=== PATIENT | male | born 1970 | race African-American/Black ===

== ENCOUNTER 2021-01-01 17:57 | Inpatient (IN) | payer BC, SELFPAY ==
--- NOTE | ~2021-01-01 | CT_ITS ---
EXAMINATION: CT abdomen pelvis w con DATE: 01/01/2021 18:59 INDICATION: Low abdominal pain. TECHNIQUE: Computed tomography (CT) of the abdomen and pelvis was performed with 100 mL Omnipaque 350 intravenous contrast. Automated exposure control and iterative reconstruction technique were employe d. The dose-length product was 396.65 mGy-cm. COMPARISON: None. FINDINGS: The visualized portions of the lung bases demonstrate mild atelectasis. No pleural effusion . The heart size is normal. No pericardial effusion. The liver, gallbladder, spleen, pancreas, adrena l glands, and kidneys are normal. There are scattered diverticula in the colon. There is fat strandin g around a diverticulum of ascending colon with local colon wall thickening and punctate foci of free intraperitoneal gas. There is trace fluid in right paracolic gutter. The appendix is normal. There a re no pathologically enlarged lymph nodes. There is mild thoracolumbar spondylosis. IMPRESSION: 1. Diverticulitis of ascending colon with microperforation. No abscess. Reviewed, dictated and finalized at location A.
[2021-01-01 18:00] VITALS: BP 123/76; PULSE 111; RESP 20; TEMP 36.9; O2SAT 100
[2021-01-01 18:26] LABS: Basophils Absolute Auto 0.1 K/mm3 (0.0-0.1); Basophils Percent Auto 0.4 % (0.2-1.2); Eosinophils Absolute Auto 0.1 K/mm3 (0-0.3); Hematocrit 43.9 % (42.0-52.0); Hemoglobin 14.6 g/dL (14.0-18.0); Immature Granulocyte Absolute 0.05 K/mm3 (0.00-0.031); Immature Granulocyte Percent A 0.4 % (0-0.5); Lymphocytes Absolute Auto 2.09 K/mm3 (0.9-3.2); Lymphocytes Percent Auto 14.8 % (18.3-44.2); Mean Corpuscular HGB Conc 33.3 g/dl (32-36); Mean Corpuscular Hemoglobin 29.7 pg (26-34); Mean Corpuscular Volume 89.4 fl (80-100); Mean Platelet Volume 10.5 fl (7.4-10.4); Monocytes Absolute Auto 1.2 K/mm3 (0.1-0.6); Monocytes Percent Auto 8.6 % (2.6-8.5); Neutrophils Absolute Auto 10.6 K/mm3 (1.3-6.7); Neutrophils Percent Auto 74.8 % (45.5-73.1); Platelet Count Result 246 k/mm3 (150-375); Red Blood Count 4.91 M/mm3 (4.6-6.20); Red Cell Distribution Width 13.1 % (11.5-14.5); White Blood Count 14.1 K/mm3 (4.5-10.0)
[2021-01-01 18:29] LABS: Add Urine Microscopic? YES; Appearance Urine Clear (Clear); Bilirubin Urine Negative (Negative); Blood Urine Negative (Negative); Color Urine Yellow (Yellow); Glucose Urine UA Negative (Negative); Ketones Urine Negative (Negative); Leukocyte Esterase Ur Negative LEU/UL (Negative); Mucus Urine Rare /lpf; Nitrate Urine Negative (Negative); Protein Urine 1+ mg/dL (Negative); RBC Urine 0-2 /hpf (0-2); Specific Grav Ur 1.025 (1.001-1.035); WBC Urine 0-3 /hpf
[2021-01-01 18:36] LABS: Alanine Aminotransferase 28 U/L (4-50); Albumin Level 4.7 g/dL (3.5-5.1); Alkaline Phosphatase 70 U/L (38-126); Anion Gap 7 mmol/L (8-16); Aspartate Amino Transferase 34 U/L (17-59); Bilirubin,Total 1.1 mg/dL (0.2-1.3); Blood Urea Nitrogen 17 mg/dL (9-20); Calcium 9.7 mg/dL (8.4-10.2); Carbon Dioxide 33 mmol/L (22-30); Chloride 101 mmol/L (98-107); Estimated CRCL calculation 70 ml/min; Estimated Glomerular Filt Rate > 60; Glucose 143 mg/dL (75-110); Lipase 66 U/L (23-300); Potassium 3.5 mmol/L (3.4-5.0); Sodium 141 mmol/L (137-145)
[2021-01-01] MEDS: SODIUM CHLORIDE 0.9% IV 1,000 ML 999 ML IV CONT ×2 (19:13→19:32)
--- NOTE | 2021-01-01 19:18 | ED.ABDPAIN ---
HPI - Abdominal Pain General Chief Complaint: Abdominal Pain Stated Complaint: abd pain Time Seen by Provider: 01/01/21 18:21 Source: patient, family and RN notes reviewed Mode of arrival: ambulatory Limitations: no limitations History of Present Illness HPI narrative: Patient is 50 years old -[place] male presents with intermittent lower abdominal pain bilaterally started yesterday morning, worse if you try to raise up, better if you lay down flat. Patient denies any fever, chills, nausea, vomiting, chest pain, back pain. Patient denies any history of abdominal surgery. Patient does not smoke, drinks daily, does not use drugs. Related Data Home Medications Medication Instructions Recorded Confirmed simvastatin 20 mg PO DAILY 01/01/21 01/01/21 Allergies Allergy/AdvReac Type Severity Reaction Status Date / Time No Known Allergies Allergy Verified 01/01/21 18:02 Review of Systems Review of Systems: Narrative: CONSTITUTIONAL: Denies fever, chills, or sweats. EYES: Denies visual changes, redness, or discharge. ENT: Denies rhinorrhea, congestion, sore throat, or otalgia. CARDIOVASCULAR: Denies chest pain, palpitations, or edema. RESPIRATORY: Denies cough or dyspnea. GASTROINTESTINAL: Denies abdominal pain, nausea, vomiting, or diarrhea. GENITOURINARY: Denies dysuria or hematuria. SKIN: Denies rash or itching. MUSCULOSKELETAL: Denies back pain, joint pain, or myalgia. NEUROLOGIC: Denies headache, numbness, or weakness. PSYCHIATRIC: Denies anxiety or depression. PMFSH Social History Social History Gender identity (if verbalized by the patient): Male Exam Narrative: Exam Narrative: General appearance: Well-developed, well-nourished Skin: Normal color Head: Normocephalic, nontraumatic Eyes: Clear conjunctiva ENT: Oropharynx normal, ears normal, nose normal Neck: Supple, nontender Chest and respiratory: Airway patent, no respiratory distress, no accessory muscle use Heart: Regular rate/rhythm Abdomen: Soft, diffuse tenderness mainly lower abdomen bilaterally, distention,, no organomegaly, quiet bowel sounds Vascular: Normal peripheral pulses, normal capillary refill. Musculoskeletal: Normal range of motion, nontender back Neurologic: Alert and oriented ?3, [employer] is normal as tested, no gross motor deficit Course Course Emergency Course: Stable Vital Signs Vital signs: Vital Signs Temperature 36.9 C 01/01/21 18:00 Pulse Rate 111 H 01/01/21 18:00 Respiratory Rate 20 01/01/21 18:00 Blood Pressure 123/76 01/01/21 18:00 Pulse Oximetry 100 01/01/21 18:00 Temperature 36.9 C 01/01/21 18:00 Pulse Rate 111 H 01/01/21 18:00 Respiratory Rate 20 01/01/21 18:00 Blood Pressure 123/76 01/01/21 18:00 Pulse Oximetry 100 01/01/21 18:00 MDM - Abdominal Pain MDM Narrative Medical decision making narrative: Patient presents with abdominal pain. Please look at the differential diagnosis below Labs, CT abdomen and pelvis with IV contrast, IV fluid, further plan to follow. The patient declined to take any pain medication at this time. Differential Diagnosis Differential diagnosis: Likely acute appendicitis, constipation, diverticulitis and pancreatitis Lab Data Result diagrams: 01/01/21 18:13 01/01/21 18:13 Labs: Lab Results 01/01/21 01/01/21 01/01/21 Range/Units 18:13 18:13 18:13 WBC 14.1 H (4.5-10.0) K/mm3 RBC 4.91 (4.6-6.20) M/mm3 Hgb 14.6 (14.0-18.0) g/dL Hct 43.9 (42.0-52.0) % MCV 89.4 (80-100) fl MCH 29.7 (26-34) pg MCHC 33.3 (32-36) g/dl RDW 13.1 (11.5-14.5) % Plt Count
[2021-01-01] MEDS: SODIUM CHLORIDE 0.9% IV 1,000 ML 150 ML IV CONT (21:11)
[2021-01-01] MEDS: HYDROmorphone HCL INJ (*CRX) 1 MG/ML SYR 0.5 MG IV PUSH (21:12)
[2021-01-01 21:23] VITALS: BP 115/79; PULSE 95; RESP 18; TEMP 36.9; O2SAT 100
[2021-01-01 22:45] VITALS: BMI 26.8
[2021-01-02] MEDS: HYDROmorphone HCL INJ (*CRX) 1 MG/ML SYR 0.5 MG IV PUSH (02:29)
[2021-01-02 04:00] VITALS: BP 113/64; PULSE 78; RESP 16; TEMP 36.6; O2SAT 98
[2021-01-02] MEDS: SODIUM CHLORIDE 0.9% IV 1,000 ML 150 ML IV CONT (05:37)
[2021-01-02 05:49] LABS: Basophils Percent Auto 0.3 % (0.2-1.2); Eosinophils Absolute Auto 0.2 K/mm3 (0-0.3); Eosinophils Percent Auto 1.3 % (0-4.4); Hematocrit 38.1 % (42.0-52.0); Hemoglobin 12.3 g/dL (14.0-18.0); Immature Granulocyte Absolute 0.06 K/mm3 (0.00-0.031); Immature Granulocyte Percent A 0.5 % (0-0.5); Lymphocytes Absolute Auto 2.02 K/mm3 (0.9-3.2); Lymphocytes Percent Auto 16.2 % (18.3-44.2); Mean Corpuscular HGB Conc 32.3 g/dl (32-36); Mean Corpuscular Hemoglobin 29.1 pg (26-34); Mean Corpuscular Volume 90.3 fl (80-100); Mean Platelet Volume 10.7 fl (7.4-10.4); Monocytes Absolute Auto 1.1 K/mm3 (0.1-0.6); Monocytes Percent Auto 9.1 % (2.6-8.5); Neutrophils Absolute Auto 9.1 K/mm3 (1.3-6.7); Neutrophils Percent Auto 72.6 % (45.5-73.1); Platelet Count Result 224 k/mm3 (150-375); Red Blood Count 4.22 M/mm3 (4.6-6.20); Red Cell Distribution Width 13.1 % (11.5-14.5); White Blood Count 12.5 K/mm3 (4.5-10.0)
--- NOTE | 2021-01-02 10:02 | PM.IMHP ---
H&P: HPI History of Present Illness Date/Time: 01/02/21 10:02 Chief Complaint: lower abdominal pain Narrative: patient is a 50-year-old man who lives in [facility]. He was in the area visiting as his daughter graduated from [employer] this weekend. He developed rather severe lower abdominal pain all across the suprapubic area on both sides of the abdomen. It started Sunday morning. It was better when he was resting and worse when he was up moving. He had a similar episode to this with the pain in exactly the same area but it did not last nearly as long nor was it is as severe. This was in August. He saw his primary care physician for this and was treated with some oral antibiotics and got better. This was more severe and he went to the emergency room. He was noted there to have an elevated white blood cell count of 14,100. he was tachycardic. He was afebrile. He had abdominal tenderness in both lower quadrants. Bowel sounds were absent. CT scan of the abdomen and pelvis showed diverticulitis of the ascending colon with micro perforation. No abscess was noted. The appendix was normal. There was fat stranding around a diverticulum of the ascending colon with local colon wall thickening and punctate foci of free intraperitoneal air. There was also trace fluid in the right colic gutter. He was admitted and started on IV Zosyn antibiotics. This morning, he feels better. He has been taking some IV Tylenol for pain with good relief. He has not had any nausea vomiting or diarrhea. He has never had any abdominal surgery. Review of Systems Review of Systems: All systems reviewed & are unremarkable except as noted in HPI and below Constitutional: Constitutional: Denies chills, Denies fever(s), Denies headache(s) and Denies night sweats ENT: Denies headache(s) Cardiovascular: Cardiovascular: Denies chest pain and Denies dyspnea Respiratory: Respiratory: Denies cough and Denies dyspnea Gastrointestinal: Gastrointestinal: Reports abdominal pain, Denies bloating, Denies constipation, Denies heartburn, Denies diarrhea, Denies nausea and Denies vomiting Genitourinary: Genitourinary: Denies dysuria, Denies flank pain and Denies urinary urgency Neurologic: Denies confusion and Denies headache(s) Psychiatric: Psychiatric: Denies confusion PMFSH Family History Family History Other Unknown family medical history Social History Social History Smoking status: Never smoker Alcohol intake: current Drinks per week: 10 Substance use: never Substance use type: does not use Gender identity (if verbalized by the patient): Male Spiritual care concerns: No Meds Home Medications and Allergies Home Medications Medication Instructions Recorded Confirmed Type simvastatin 20 mg PO DAILY 01/01/21 01/01/21 History Allergies Allergy/AdvReac Type Severity Reaction Status Date / Time No Known Allergies Allergy Verified 01/01/21 18:02 Vital Signs Vital Signs - 24 hr 01/01/21 18:00 01/01/21 21:23 01/02/21 04:00 Temperature 36.9 C 36.9 C 36.6 C Pulse Rate 111 H 95 78 Respiratory Rate 20 18 16 Blood Pressure 123/76 115/79 113/64 Pulse Oximetry 100 100 98 Exam Const: General: cooperative, comfortable, no acute distress, alert and awake; No confusion Orientation/consciousness: No confusion HENMT: Head: normocephalic, atraumatic, no contusions and no scalp lesions Ears: external ears normal General nose exam: Normal external nose present Face and sinus: face symmetric and dry mucous membranes Mouth: Yes Normal oral and palatal mucosa present and Yes tongue normal Throat: posterior oropharynx normal Eyes: General: appearance normal, both eyes and all related structures ( Wears eyeglasses) Conjunctivae: conjunctivae normal Sclera: sclerae normal Pupils: Equal, round and reactive
[2021-01-02] MEDS: FAMOTIDINE 20 MG/2 ML VIAL IV PUSH (12:08)
[2021-01-02] MEDS: ENOXAPARIN 40 MG/0.4 ML SYRINGE SUB-Q (12:08)
[2021-01-02] MEDS: ACETAMINOPHEN 500 MG TABLET PO ×2 (13:42→19:46)
[2021-01-02] MEDS: FAMOTIDINE 20 MG TABLET PO (20:21)
[2021-01-02 23:35] VITALS: BP 111/64; PULSE 74; RESP 16; TEMP 36.1; O2SAT 100
[2021-01-03 04:00] VITALS: BP 117/65; PULSE 72; RESP 16; TEMP 36.3; O2SAT 100
[2021-01-03 05:36] LABS: Hematocrit 37.8 % (42.0-52.0); Hemoglobin 12.6 g/dL (14.0-18.0); Mean Corpuscular HGB Conc 33.3 g/dl (32-36); Mean Corpuscular Volume 86.9 fl (80-100); Mean Platelet Volume 10.6 fl (7.4-10.4); Platelet Count Result 243 k/mm3 (150-375); Red Blood Count 4.35 M/mm3 (4.6-6.20); Red Cell Distribution Width 12.4 % (11.5-14.5); White Blood Count 8.6 K/mm3 (4.5-10.0)
[2021-01-03 05:50] LABS: Potassium 3.6 mmol/L (3.4-5.0)
[2021-01-03 05:54] LABS: Anion Gap 3 mmol/L (8-16); Blood Urea Nitrogen 6 mg/dL (9-20); Carbon Dioxide 32 mmol/L (22-30); Chloride 105 mmol/L (98-107); Estimated CRCL calculation 64 ml/min; Estimated Glomerular Filt Rate > 60; Glucose 113 mg/dL (75-110); Sodium 140 mmol/L (137-145)
--- NOTE | 2021-01-03 07:24 | PM.DS ---
DS: Admitting Diagnosis Admitting Diagnosis Admitting Diagnosis: Diverticulitis with perforation -ascending colon DS: Discharge Diagnosis Discharge Diagnosis (1) Diverticulitis of colon with perforation: Qualifiers: Diverticulitis bleeding: without bleeding Qualified Code(s): K57.20 - Diverticulitis of large intestine with perforation and abscess without bleeding Code(s): K57.20 - Diverticulitis of large intestine with perforation and abscess without bleeding Status: Acute DS: Summary Hospital Course Hospital Course: patient is a 50-year-old man who presented to the emergency room on Jan 01 2021 with history of bilateral lower quadrant abdominal pain. This had started the day before. It was worse when up moving and better when he was resting. Last August he had literally the exact same pain but not as severe. It went away with oral antibiotics from his primary care physician. He lives [facility] in [facility]. He was here visiting for his daughter's college graduation. He was seen in the emergency room and noted to have leukocytosis and a very tender abdomen. He was also tachycardic. CT scan showed evidence of ascending colon diverticulitis. He was started on IV Zosyn and analgesics. He was given IV fluids as well. He was on bowel rest. He felt quite a bit better on 01/02/2021. He was started on clear liquids and tolerated them well. He had a bowel movement on the day of discharge. His pain was completely gone by the day of discharge. He is discharged at this time on Augmentin to complete a full weeks course. He will follow up with his primary care physician at home. He did have a colonoscopy about 2 years ago and recalls this was negative. Status at Discharge Functional status at discharge: independent ambulation Overall status at discharge: patient is progressing back to baseline Time Spent with Patient Time attestation: Total time spent providing and/or coordinating discharge services: Time spent: Less than 30 minutes Specific discharge activities: Low-fiber diet for 2 weeks, after that -avoid popcorn, peanuts in the shell, pumpkin seeds, sunflower seeds. Exam Const: General: comfortable and no acute distress; No confusion Orientation/consciousness: patient oriented x3 and No confusion GI: Inspection: normal to inspection, non-distended and scaphoid GI Palp: Yes Soft to palpation, No Tenderness to palpation present (GI), No Guarding due to palpation present (GI) and No Rebound tenderness present Auscultation: normal bowel sounds Neuro: General: patient oriented x3, no focal motor deficits and No confusion Extrem: General: no calf tenderness and no edema Psych: Affect: normal affect Insight: Good insight present (Psych) Judgement: Good judgement present (Psych) DS: Data Data Completed and Pending Labs on day of discharge: Labs from last 24 hours 01/03/21 01/03/21 05:12 05:12 WBC 8.6 RBC 4.35 L Hgb 12.6 L Hct 37.8 L MCV 86.9 MCH 29.0 MCHC 33.3 RDW 12.4 Plt Count 243 MPV 10.6 H Sodium 140 Potassium 3.6 Chloride 105 Carbon Dioxide 32 H Anion Gap 3 L BUN 6 L D Creatinine 1.20 Estim Creat Clear Calc 64 Estimated GFR > 60 Glucose 113 H Calcium 9.0 Discharge Plan Discharge Attending physician on discharge: Vasiliy Pérez Discharging Clinician: Vasiliy Pérez Anticipated Discharge Date/Time: 01/03/21 07:30 Patient Disposition: Home, Self-Care Activity: may shower and as tolerated Diet: low fiber Discharge Instructions: Low-fiber, low residue diet for 2 weeks. After 2 weeks-avoid popcorn, peanuts in the shell, pumpkin seeds, sunflower seeds. Patient Instructions: Antibiotic Form, Hydromorphone (By injection), Acetaminophen (By injection), Diverticulitis (DC), Diverticulitis (GEN), Acute Abdominal Pain (DC), Perforated Bowel (DC), Perforated Bowel (GEN) Stand Alone Forms: General
[2021-01-03] MEDS: ENOXAPARIN 40 MG/0.4 ML SYRINGE SUB-Q (08:15)
[2021-01-03] MEDS: FAMOTIDINE 20 MG TABLET PO (08:15)
[2021-01-03 08:21] VITALS: RESP 18; O2SAT 100
== END 2021-01-03 10:10 | disposition home or self-care (01) | DRG 392 ==
LOC: ANHED 19:28 → ANH2MED 20:14
PROVIDERS: Admitting Provider Surgery; Emergency Provider Emergency Medicine; Visit Provider Surgery
DX: K57.20 Diverticulitis of large intestine with perforation and abscess without bleeding (principal)
CPT/HCPCS: 36415; 74177; 80048; 80053; 81001; 83690; 85025; 85027; 96361; 96365; 96374; 96375; 96376; 99285; A9270; G0378; J0131; J1170; J1650; J2543; J7030; Q9967